=== PATIENT | female | born 1985 ===

== ENCOUNTER 2016-10-16 18:08 | Emergency (ER) | payer OTHER ==
--- NOTE | 2016-10-16 19:18 | OBHP ---
Datetime: 10/16/2016 18:11 IP Adm Impression: , intrauterine ; No Active Labor IP Admit Plan: Observation/Evaluation; Discharge home Admit Comment, IP Provider: 31yo with IUP at 35wks presents here today c/o some decreased movements today. She denies any VB or LOF. Pt reports that she is feeling good movements now. Tappen-irregular, FHR - Category 1, Cx- 0/0/-3 Assessment: IUP at 35.5wks NST Reactive Plan as per Private OB. D/c Home. F/U in the Office within 1 week. Pelvic Type - PN: Adequate Extremities - PN: Normal Abdomen - PN: Normal Back - PN: Normal Breast - PN: Normal Lungs - PN: Normal Heart - PN: Normal Thyroid - PN: Normal Neurologic - PN: Normal HEENT - PN: Normal General - PN: Normal FHR - Baseline A Provider: 130 Membranes, Provider: Intact Contraction Comments Provider: occasional Gestation - Est Wks by US: 35.5 IP Chief Complaint: Decreased movement NICHD Variability Prov Fetus A: Moderate 6-25bpm NICHD Accel Fetus A IP Provider: 15X15 FHR Category Provider Fetus A: Category I NICHD Decel Fetus A IP Provider: None Dilatation, Provider: 0 Effacement, Provider: 0 Station, Provider: -3 Genitourinary Exam: Normal DTRs - PN: Normal
[2016-10-16 23:28] VITALS: BP 113/74; PULSE 100; RESP 18; TEMP 97.1; O2SAT 96
== END 2016-10-16 19:22 | disposition home or self-care (01) ==
LOC: C.EROB 18:08
DX: O36.8130 Decreased fetal movements, third trimester, not applicable or unspecified (principal); Z3A.35 35 weeks gestation of pregnancy

== ENCOUNTER 2016-11-05 14:08 | Inpatient (IN) | payer OTHER ==
[2016-11-05 15:58] VITALS: BMI 28.5
[2016-11-05] MEDS: Lactated Ringer's 1,000 ML IV SCH (16:00)
[2016-11-05 16:46] LABS: BASO % 0.2 % (0.0-2.0); EOS # 0.5 K/uL (0.0-0.7); EOS % 4.2 % (0.0-4.0); LYMPH # 2.4 K/uL (1.0-4.3); LYMPH % 20.2 % (20.0-40.0); MEAN CELL VOLUME 83.4 fL (81.0-99.0); MEAN CORPUSCULAR HEMOGLOBIN 27.4 pg (27.0-31.0); MEAN CORPUSCULAR HGB CONC 32.9 g/dL (33.0-37.0); MEAN PLATELET VOLUME 11.6 fL (7.2-11.7); MONO # 0.8 K/uL (0.0-0.8); MONO % 7.2 % (0.0-10.0); RED CELL DISTRIBUTION WIDTH 21.5 % (11.5-14.5); WHITE BLOOD COUNT 11.8 K/uL (4.8-10.8)
[2016-11-05 16:51] LABS: CHLORIDE 99 mmol/L (98-107); POTASSIUM 4.4 mmol/L (3.6-5.2); SODIUM 134 mmol/L (132-148)
[2016-11-05 16:53] LABS: ALB/GLOB RATIO 1.2 (1.0-2.1); ALKALINE PHOSPHATASE 134 U/L (38-126); ALT/SGPT 39 U/L (9-52); AST/SGOT 26 U/L (14-36); BILIRUBIN,TOTAL 0.6 mg/dL (0.2-1.3); BLOOD UREA NITROGEN 5 mg/dL (7-17); CARBON DIOXIDE 21 mmol/L (22-30); GFR AFRICAN-AMERICAN > 60; TOTAL PROTEIN 6.6 g/dL (6.3-8.3)
[2016-11-05 16:54] LABS: CALCIUM 9.2 mg/dl (8.6-10.4); GLUCOSE,RANDOM 87 mg/dL (65-105); URIC ACID 3.3 mg/dL (2.2-7.5)
[2016-11-05 17:10] LABS: RBC URINE 1 /hpf (0-3); URINE BACTERIA MANY (<OCC); URINE BILIRUBIN NEGATIVE (NEGATIVE); URINE BLOOD NEGATIVE (NEGATIVE); URINE COLOR Yellow (YELLOW); URINE GLUCOSE (UA) NORMAL (Normal); URINE KETONE NEGATIVE (NEGATIVE); URINE LEUKOCYTE ESTERASE NEG Leu/uL (Negative); URINE PROTEIN NEGATIVE (NEGATIVE); URINE UROBILINOGEN NORMAL mg/dL (0.2-1.0); WBC URINE 3 /hpf (0-5)
--- NOTE | 2016-11-05 17:26 | OBHP ---
Datetime: 11/05/2016 16:06 IP Adm Impression: Term, intrauterine ; No Active Labor IP Admit Plan: Admit to unit; Initiate labor induction protocol (Annotations: Data stored by CPN on behalf of user) Admit Comment, IP Provider: 31 y.o. , LMP 02/09/16, KAYDEN 11/15/16, EGA 38w 4d - c/o increasing body itching. (+) AFM; denies LOF, VB, Ctx. case: Dr. Zuleyma Matthews, noted for 1) PUPPS versus cholestasis of . Elevated bile acids 11/02/16 confirming cholestasis of . 2) hyp othyroid - on levothyroxine; 3) anemia, on iron and folic acid. 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 x 3 years. 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 Fam Hx: Mother alive 54. Father alive 60; both, no med issues. No known fam h/o cancer P.E.: Short statured. WD in NAD. Awake, alert, oriented to time, person and place. Accompanied by - cervidil placed in posterior vaginal vault at 1630 hours Assessment: 31 y.o. P0, 38w 4d, cholestasis of for IOL; cervical ripening iniitiated. Al so, polyhydramnios - recent ultrasound 11/03/16, OSVALDO 25+ cm (per Dr. Matthews). Category 1 tracing. D/W patient cervical ripening; pain meds, upon request; continuation of labor - based on repsonse to cerv ical ripening, which includes but is not limited to spontaneous progession, pitocin, rupture of memb ranes. Patient and expressed an understanding and agrees; no questions offered. Patient is clinically stable. Plan: 1) Admit 2) NPO 3) IVFs 4) Continuous EFM 5) Admission labs 7) Observation 8) Anticipate vaginal delivery Pelvic Type - PN: Adequate Extremities - PN: Abnormal Abdomen - PN: Normal Back - PN: Normal Breast - PN: Not Done Lungs - PN: Normal Heart - PN: Normal Thyroid - PN: Normal Neurologic - PN: Normal HEENT - PN: Normal General - PN: Normal Weight - Estimated: 3632 Presentation-Admit: Vertex FHR - Baseline A Provider: 135 Membranes, Provider: Intact Contraction Comments Provider: sporadic Comments, ACOG Physical Exam: Abdomen: Gravid. Soft. Fundal height 40 cm Extremities: (+) occasional papules in various stages in lower extremities, greater below the kne es. All other systems reviewed - as per HPI Gestation - Est Wks by US: 38w 4d IP Hx Assessment: The History has been Reviewed and is Current EGA AdmitDate IP: 38.4 IP Indication for Induction: Other IP Chief Complaint: Other NICHD Variability Prov Fetus A: Moderate 6-25bpm NICHD Accel Fetus A IP Provider: 15X15 FHR Category Provider Fetus A: Category I NICHD Decel Fetus A IP Provider: None Dilatation, Provider: 0 Effacement, Provider: 0 Station, Provider: -3 Genitourinary Exam: Normal DTRs - PN: Normal
--- NOTE | 2016-11-05 17:29 | OBADHP ---
Datetime: 11/05/2016 16:06 Admit Comment, IP Provider: 31 y.o. , LMP 02/09/16, KAYDEN 11/15/16, EGA 38w 4d - c/o increasing body itching. (+) AFM; denies LOF, VB, Ctx. case: Dr. Zuleyma Matthews, noted for 1) PUPPS versus cholestasis of . Elevated bile acids 11/02/16 confirming cholestasis of . 2) hyp othyroid - on levothyroxine; 3) anemia, on iron and folic acid. 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 x 3 years. Homemaker. Fam Hx: Mother alive 54. Father alive 60; both, no med issues. No known fam h/o cancer P.E.: Short statured. WD in NAD. Awake, alert, oriented to time, person and place. Accompanied by - cervidil placed in posterior vaginal vault at 1630 hours Assessment: 31 y.o. P0, 38w 4d, cholestasis of for IOL; cervical ripening iniitiated. Al so, polyhydramnios - recent ultrasound 11/03/16, OSVALDO 25+ cm (per Dr. Matthews). Category 1 tracing. D/W patient cervical ripening; pain meds, upon request; continuation of labor - based on repsonse to cerv ical ripening, which includes but is not limited to spontaneous progession, pitocin, rupture of memb ranes. Patient and expressed an understanding and agrees; no questions offered. Patient is clinically stable. Plan: 1) Admit 2) NPO 3) IVFs 4) Continuous EFM 5) Admission labs 7) Observation 8) Anticipate vaginal delivery Pelvic Type - PN: Adequate Extremities - PN: Abnormal Abdomen - PN: Normal Back - PN: Normal Breast - PN: Not Done Lungs - PN: Normal Heart - PN: Normal Thyroid - PN: Normal Neurologic - PN: Normal HEENT - PN: Normal General - PN: Normal Weight - Estimated: 3632 Presentation-Admit: Vertex FHR - Baseline A Provider: 135 Membranes, Provider: Intact Contraction Comments Provider: sporadic Comments, ACOG Physical Exam: Abdomen: Gravid. Soft. Fundal height 40 cm Extremities: (+) occasional papules in various stages in lower extremities, greater below the kne es. All other systems reviewed - as per HPI Gestation - Est Wks by US: 38w 4d IP Hx Assessment: The History has been Reviewed and is Current Vital Signs Provider: Reviewed; Within Normal Limits IP Chief Complaint: Other NICHD Variability Prov Fetus A: Moderate 6-25bpm NICHD Accel Fetus A IP Provider: 15X15 FHR Category Provider Fetus A: Category I NICHD Decel Fetus A IP Provider: None Dilatation, Provider: 0 Effacement, Provider: 0 Station, Provider: -3 Genitourinary Exam: Normal DTRs - PN: Normal EGA AdmitDate IP: 38.4 IP Adm Impression: Term, intrauterine ; No Active Labor IP Admit Plan: Admit to unit; Initiate labor induction protocol
[2016-11-06] MEDS ORDERED: Propofol 10 mg/ml Inj (20 ML) ONE (06:17)
[2016-11-06] MEDS ORDERED: Oxytocin 30 UNIT 30 UNITS/500 ML BAG IV ONE (06:27)
[2016-11-06] MEDS ORDERED: Morphine 1 mg/ml preservative-free Inj(Duramorph) ONE (06:30)
[2016-11-06] MEDS ORDERED: Midazolam 2 MG/2 ML VIAL ONE (06:31)
[2016-11-06] MEDS ORDERED: cefOXitin IV 2 gm in Dextrose 2 GM/50 ML BAG IVPB ONE (06:34)
--- NOTE | 2016-11-06 07:55 | OBPN ---
Datetime: 11/06/2016 07:42 IP Progress Note Comment: Notified by R.N. at approximately 0605 hours, of low heart rate In LDR#1, patient received in left lateral, IVF bolus inprogress, oxygen mask in place. hear t rate 80 bpm. Patient positined on all fours. FHR apparently improved to 110-120 bpm. Pulse oximete r checked, this heart rate most likely maternal. Bedside sono performed: cephalic presentation confi rmed and FHR detected at 80s bpm. Decision made to proceed with delivery. Before this, sofy valencia MD was called. Consent obtained. Anesthesia and blemish remover were notifed. Patient transferred to O.R. on bed. See full operative report by Dr. Matthews Datetime: 11/05/2016 16:06 Membranes, Provider: Intact Contraction Comments Provider: sporadic FHR - Baseline A Provider: 135 Gestation - Est Wks by US: 38w 4d Weight - Estimated: 3632 Presentation-Admit: Vertex Vital Signs Provider: Reviewed; Within Normal Limits NICHD Accel Fetus A IP Provider: 15X15 FHR Category Provider Fetus A: Category I NICHD Variability Prov Fetus A: Moderate 6-25bpm Dilatation, Provider: 0 Effacement, Provider: 0 Station, Provider: -3 NICHD Decel Fetus A IP Provider: None
--- NOTE | 2016-11-06 07:55 | OBDS ---
DELIVERY PERSONNEL Delivery Doctor: Ralph Matthews MD Veterans Service Officer: Dori Ontiveros RN Anesthesiologist: Dr. Ordonez MATERNAL INFORMATION Delivery Anesthesia: General Medications in Delivery: pitocin 20 units Estimated Blood Loss (ml): 800 Placenta Cultured: No Maternal Complications: None RN Comments: Emergency CS to a live baby boy with 10/17 Provider Comments: Under [place], STAT primary LTCS performed with atraumatic delivery of live male infan t, weight 8lb 1oz, 's 9/9, cord pH pending. Patient tolerated procedure well; extubated and to R R in stable condition. to well baby nursery, also in stable condition LABOR SUMMARY EDC: 11/15/2016 00:00 No. Babies in Womb: 1 Attempted: No Labor Anesthesia: None LABOR INFORMATION Cervical Ripening Agents: Cervidil; Cytotec @ Oxytocin: N/A Group B Beta Strep: Negative Steroids Given: None Reason Steroids Not Administered: Not Applicable MEMBRANES Membranes Rupture Method: Artificial Rupture of Membranes: 11/06/2016 06:24 Length of Rupture (hrs): 0.00 Amniotic Fluid Color: Clear Amniotic Fluid Amount: Large Amniotic Fluid Odor: Normal STAGES OF LABOR Stage 3 hrs: 0 Stage 3 min: 1 CSECTION DELIVERY Primary Indication: Non reassuring heart rate Secondary Indication: Failed Induction CSection Urgency: Emergency CSection Incidence: Primary Labor: Labor Elective: Nonelective CSection Incision: Lower Uterine Transverse BABY A INFORMATION Infant Delivery Date/Time: 11/06/2016 06:24 Method of Delivery: Born in Route : No : N/A Forceps: N/A Vacuum Extraction: N/A Shoulder Dystocia : No SHOULDER DYSTOCIA BABY A Infant Delivery Date/Time: 11/06/2016 06:24 PRESENTATION/POSITION BABY A Presentation: Cephalic Cephalic Presentation: Vertex Vertex Position: Left Occipital Anterior Breech Presentation: N/A PLACENTA INFORMATION BABY A Placenta Delivery Time : 11/06/2016 06:25 Placenta Method of Delivery: Manual Removal Placenta Status: Delivered SCORES BABY A Heart Rate 1 min: >100 bpm Resp Effort 1 min: Good Cry Reflex Irritability 1 min: Cough or Sneeze or Pulls Away Muscle Tone 1 min: Active Motion Color 1 min: Body [place], Extremities Blue SCORE 1 MIN: 9 Heart Rate 5 min: >100 bpm Resp Effort 5 min: Good Cry Reflex Irritability 5 min: Cough or Sneeze or Pulls Away Muscle Tone 5 min: Active Motion Color 5 min: Body [place], Extremities Blue SCORE 5 MIN: 9 INFORMATION BABY A Gestational Age at Delivery: 38.5 Gestational Status: Term Outcome : Liveborn Infant Condition : Stable Sex: Male IDENTIFICATION/MEDS BABY A ID Band Number: [id number] ID Band Location: Left Leg; Left Arm Sensor Applied: Yes Sensor Number: [id number] Sensor Location : Cord Clamp WEIGHT/LENGTH BABY A Infant Birthweight (gms): 3645 Infant Weight (lb): 8 Infant Weight (oz): 1 Infant Length Inches: 20.00 Length cms: 50.8 CORD INFORMATION BABY A No. Cord Vessels: 3 Nuchal Cord : N/A Cord Blood Taken: Yes Infant Suction: None ASSESSMENT BABY A Complications: None Physical Findings at Delivery: Within Normal Limits Infant Respirations: Appears Normal Wire Rope Sling Maker/ALS Called : No Infant Care By: Dr. Whatley Transferred To: Nursery
--- NOTE | 2016-11-06 07:59 | OBDS ---
DELIVERY PERSONNEL Delivery Doctor: Ralph Matthews MD Wood And Hardware Outfitter: Dori Ontiveros RN Anesthesiologist: Dr. Ordonez MATERNAL INFORMATION Delivery Anesthesia: General Medications in Delivery: pitocin 20 units Estimated Blood Loss (ml): 800 Placenta Cultured: No Maternal Complications: None RN Comments: Emergency CS to a live baby boy with 10/17 Provider Comments: Under [place], STAT primary LTCS performed with atraumatic delivery of live male infan t, weight 8lb 1oz, 's 9/9, cord pH pending. Patient tolerated procedure well; extubated and to R R in stable condition. to well baby nursery, also in stable condition agree with above LABOR SUMMARY EDC: 11/15/2016 00:00 No. Babies in Womb: 1 Attempted: No Labor Anesthesia: None LABOR INFORMATION Cervical Ripening Agents: Cervidil; Cytotec @ Cervical Ripening Agents: Cervidil (Annotations: cervidil removed) Cervical Ripening Agents: Cervidil Oxytocin: N/A Group B Beta Strep: Negative Group B Beta Strep: Negative Steroids Given: None Reason Steroids Not Administered: Not Applicable MEMBRANES Membranes Rupture Method: Artificial Rupture of Membranes: 11/06/2016 06:24 Length of Rupture (hrs): 0.00 Amniotic Fluid Color: Clear Amniotic Fluid Amount: Large Amniotic Fluid Odor: Normal STAGES OF LABOR Stage 3 hrs: 0 Stage 3 min: 1 CSECTION DELIVERY Primary Indication: Non reassuring heart rate Secondary Indication: Failed Induction CSection Urgency: Emergency CSection Incidence: Primary Labor: Labor Elective: Nonelective CSection Incision: Lower Uterine Transverse BABY A INFORMATION Infant Delivery Date/Time: 11/06/2016 06:24 Method of Delivery: Born in Route : No : N/A Forceps: N/A Vacuum Extraction: N/A Shoulder Dystocia : No SHOULDER DYSTOCIA BABY A Delivery Date/Time: 11/06/2016 06:24 PRESENTATION/POSITION BABY A Presentation: Cephalic Cephalic Presentation: Vertex Vertex Position: Left Occipital Anterior Breech Presentation: N/A PLACENTA INFORMATION BABY A Placenta Delivery Time : 11/06/2016 06:25 Placenta Method of Delivery: Manual Removal Placenta Status: Delivered SCORES BABY A Heart Rate 1 min: >100 bpm Resp Effort 1 min: Good Cry Reflex Irritability 1 min: Cough or Sneeze or Pulls Away Muscle Tone 1 min: Active Motion Color 1 min: Body [place], Extremities Blue SCORE 1 MIN: 9 Heart Rate 5 min: >100 bpm Resp Effort 5 min: Good Cry Reflex Irritability 5 min: Cough or Sneeze or Pulls Away Muscle Tone 5 min: Active Motion Color 5 min: Body [place], Extremities Blue SCORE 5 MIN: 9 INFORMATION BABY A Gestational Age at Delivery: 38.5 Gestational Status: Term Infant Outcome : Liveborn Infant Condition : Stable Infant Sex: Male IDENTIFICATION/MEDS BABY A ID Band Number: [id number] ID Band Location: Left Leg; Left Arm Sensor Applied: Yes Sensor Number: [id number] Sensor Location : Cord Clamp WEIGHT/LENGTH BABY A Birthweight (gms): 3645 Weight (lb): 8 Weight (oz): 1 Length Inches: 20.00 Length cms: 50.8 CORD INFORMATION BABY A No. Cord Vessels: 3 Nuchal Cord : N/A Cord Blood Taken: Yes Infant Suction: None ASSESSMENT BABY A Infant Complications: None Physical Findings at Delivery: Within Normal Limits Respirations: Appears Normal Strike Off Machine Operator/ALS Called : No Infant Care By: Dr. Whatley Transferred To: Nursery
--- NOTE | 2016-11-06 08:25 | PCM.SURG1 ---
Surgeon's Initial Post Op Note - Surgeon's Notes Surgeon: Zuleyma Matthews MD Cap Coverer: Judy Kerr MD Type of Anesthesia: General Endo Pre-Operative Diagnosis: Term Intrauerine , bradycardia, intrahepatic cholestasis of pregancy Operative Findings: live male infnat, agpars 9,9 weight of 8lbs1 ounces. ebl 800 ml, normal uteurs , tubes and ovaries bilaterally. pediatrical present for entire delivery. Dr Esparza was present for entire case and [facility] I arried witin minutes of starting and baby was delivered with hog tender at [facility]. Dr Atkinson was essential in gaining, etreym, retraction, exposure, holidng bldader blader , dleiveyr infnat, clsoing all laweyrs, obtainign hemostasis. Post-Operative Diagnosis: same as above Operation Performed: Primary Low Transerse Cesearean section Specimen/Specimens Removed: placenta Estimated Blood Loss: EBL {In ML}: 800 Blood Products Given: N/A Drains Used: No Drains Date of Surgery/Procedure: 11/06/16 Time of Surgery/Procedure: 06:00
[2016-11-06] MEDS ORDERED: oxyCODONE 30 mg Immediate Release Tab PO PRN (10:34)
--- NOTE | 2016-11-06 11:00 | OP ---
SURGEON: Zuleyma Matthews MD RAISIN SEPARATOR OPERATOR: Theresa Esparza MD TYPE OF ANESTHESIA: General endotracheal. PREOPERATIVE DIAGNOSES: Term intrauterine , bradycardia, intrahepatic cholestasis of . OPERATIVE FINDINGS: Live female , is 9 and 9, weight of 8 pounds 1 ounce. FINDINGS: Normal uterus, tubes and ovaries bilaterally. Director Sanitation Bureau present for entire delivery. Dr. Esparza was present for the entire case and started the section due to emergent need during which I arrived in minutes of the section starting and baby was delivered with public safety telecommunicator at bedside. Dr. Esparza was essential in gaining entry, retraction, exposure, holding the bladder blade, delivering the , closing all layers, obtaining hemostasis and was present for the entire case. POSTOPERATIVE DIAGNOSES: Term intrauterine , bradycardia, intrahepatic cholestasis of . OPERATION PERFORMED: Primary low transverse section. SPECIMEN REMOVED: Placenta. ESTIMATED BLOOD LOSS: 800 mL. BLOOD PRODUCTS: None. COMPLICATIONS: None. DESCRIPTION OF PROCEDURE: The patient was taken to the operating room after she was noted to have a prolonged deceleration which was not improved with resuscitation, manipulation of left lateral decubitus position, oxygen, etc. A bedside ultrasound was then done as per Dr. Esparza in which bradycardia was confirmed and the patient was immediately transferred to the OR in which general anesthesia was administered at 06:22, baby was delivered by 06:24 in a stat fashion. A Pfannenstiel skin incision was made with a scalpel and carried in line to the underlying layer of the fascia. The fascia was incised in the midline and the incision was extended laterally bluntly. The rectus muscle was bluntly in the midline. The lower end of the [place] was then bluntly inserted after peritoneal entrance was obtained. Uterine incision was then made, incision extended laterally bluntly. The surgeon's hand entered the uterine cavity and the infant's head was delivered atraumatically followed by delivery of the shoulders followed by delivery of the body. Both oral and nasal passages of the baby were bulb suctioned. The umbilical cord was clamped and cut and the baby was handed off to the awaiting public safety telecommunicator. I had arrived at that moment in which and I scrubbed in. Cord blood and cord gases were collected and sent x2. The placenta was then delivered manually. The uterus was exteriorized and cleared off all clots and debris. The uterine incision was repaired with 0 Vicryl in running continuous locked fashion, second layer of the same suture was used to close the uterus in a running imbricating manner. There were normal tubes and ovaries bilaterally. The uterus was then returned to the abdomen. The paracolic gutters were cleared of all clots and debris, and there was good hemostasis at the uterine incision site. The peritoneum was reapproximated and closed with 2-0 chromic in a continuous fashion. The rectus was reapproximated and closed with 2-0 chromic in interrupted manner. The fascia was reapproximated and closed with 0 Vicryl in a running continuous fashion. Subcutaneous tissue was closed with 2-0 plain in interrupted manner and the skin was reapproximated and closed with 3-0 Monocryl in a running subcuticular fashion on a Michael needle. At the end of the procedure, all needle, sponge and instrument counts were noted and correct x2. The patient tolerated the procedure well and was transferred to the recovery room in stable condition. Zuleyma Matthews MD
[2016-11-06] MEDS: Lactated Ringer's 1,000 ML IV SCH (14:54)
[2016-11-06] MEDS: cefOXitin IV 1 gm in Dextrose 1 GM/50 ML BAG IVPB SCH ×2 (14:56→20:31)
[2016-11-06] MEDS: Simethicone 80 mg Chewtab PO PRN (21:36)
[2016-11-07] MEDS: cefOXitin IV 1 gm in Dextrose 1 GM/50 ML BAG IVPB SCH (04:37)
[2016-11-07] MEDS: Oxycodone/Acetaminophen 5/325 mg Tab PO PRN ×3 (06:12→23:07)
--- NOTE | 2016-11-07 07:17 | OBPPN ---
Datetime: 11/07/2016 07:14 PP Pain Prov: Within normal limits PP Nausea Prov: Denies PP Flatus Prov: No PP BM Prov: No PP Breasts Prov: Normal PP Heart Prov: Normal PP Lungs Prov: Normal PP Abdomen/Uterus Prov: Normal PP Lochia Prov: Normal PP Vulva/Perineum Prov: Normal PP CVA Tenderness Prov: Normal PP Extremities Prov: Normal PP C/S Incision Prov: Normal PP Progress Prov: Normal PP Impression Prov: Normal progression PP Plan Prov: Continue present management PP Progress Note Prov: Pt seen and examined and reports pain is well controlled. Pt isambuating, vo iding and passig flatus, noBM. Pt denies any fevers, chills, nause, vomiting, dizzyness, lighthtean ds, cp, sob. Pt is breast feeding, tolerating diet VSS PE: GEN :nAD, AAOx 3 RESP: CTAB/l CVS RRR, +S1/S2 BREAST: Non tender, non engorged b/l ABD: soft, NT/ND, +BS, no guarding no reboudn tendneress, no rigidty Incsion C/D/I FUndu: Firm, below level of umbius, minimal lochia, non fouls melling EXT: no calf tenerness, negative santiago's sign A/P s/p PLTCS POD #1 doing well -d/c marshall -adviance diet -iv heplock once toleratting regular diet -am labs -bowel regimen -encouarge amubatin, breast feeding ,incentive psriomter Vital Signs Provider PP: Reviewed; Within Normal Limits
[2016-11-07] MEDS: Simethicone 80 mg Chewtab PO PRN ×2 (11:00→15:38)
[2016-11-08] MEDS: Oxycodone/Acetaminophen 5/325 mg Tab PO PRN ×2 (08:25→14:22)
[2016-11-08] MEDS: Simethicone 80 mg Chewtab PO PRN ×3 (09:32→17:14)
--- NOTE | 2016-11-08 14:20 | OBPPN ---
Datetime: 11/08/2016 14:08 PP Pain Prov: Within normal limits PP Nausea Prov: Denies PP Flatus Prov: No PP BM Prov: No PP Breasts Prov: Not Done PP Heart Prov: Normal PP Lungs Prov: Normal PP Abdomen/Uterus Prov: Normal PP Lochia Prov: Normal PP Vulva/Perineum Prov: Not Done PP CVA Tenderness Prov: Normal PP Extremities Prov: Normal PP C/S Incision Prov: Normal PP Progress Prov: Normal PP Comments Phys Exam Prov: Abdomen: (+) BS. Softly distended. Fundus firm, mobile, minimal and appr opriately tender. Incision with subcuticular closure - clean, dry and intact. All other systems reviewed and are negative PP Impression Prov: Normal progression PP Plan Prov: Continue present management PP Progress Note Prov: Patient received in room 459, sitting in chair. . Reports incis ional pain 3/10 without pain meds; and much improved when she takes pain med. Denies nausea, vomiting ; flatus or BM. Ambulating and voiding without difficulty. Reports itching to extremities still pres ent. P.E.: as above. Awake, alert, oriented to time, person and place. Pleasant and cooperative - post operative H/H pending Assessment: POD#2, 31 y.o. P1, S/P STAT primary LTCS for bradycardia; failed IOL for choles tasis of . Afebrile, vital signs stable. Returning function. Slowly returning GI - patie nt encouraged to ambulate more and decrease p.o. intake of narcotics. Hypothyroid on levethyroxine. Clinically stable. Plan: 1) Contniue present management 2) Anticipate discharge home 11/09 -as per Dr. Matthews Vital Signs Provider PP: Reviewed; Within Normal Limits
[2016-11-08 16:52] LABS: BASO # 0.1 K/uL (0.0-0.2); BASO % 0.5 % (0.0-2.0); EOS # 0.6 K/uL (0.0-0.7); EOS % 4.6 % (0.0-4.0); HEMATOCRIT 33.7 % (34.0-47.0); LYMPH # 2.6 K/uL (1.0-4.3); LYMPH % 20.7 % (20.0-40.0); MEAN CELL VOLUME 84.6 fL (81.0-99.0); MEAN CORPUSCULAR HEMOGLOBIN 27.7 pg (27.0-31.0); MEAN CORPUSCULAR HGB CONC 32.7 g/dL (33.0-37.0); MEAN PLATELET VOLUME 11.2 fL (7.2-11.7); MONO # 0.9 K/uL (0.0-0.8); MONO % 7.6 % (0.0-10.0); NRBC % 0.1 % (0.0-2.0); RED CELL DISTRIBUTION WIDTH 20.7 % (11.5-14.5); WHITE BLOOD COUNT 12.6 K/uL (4.8-10.8)
[2016-11-08] MEDS: Levothyroxine 50 MCG TAB PO SCH (17:11)
[2016-11-08 19:56] VITALS: RESP 20
[2016-11-09] MEDS: Levothyroxine 50 MCG TAB PO SCH (06:11)
[2016-11-09] MEDS: Oxycodone/Acetaminophen 5/325 mg Tab PO PRN (06:20)
--- NOTE | 2016-11-09 07:37 | OBDCSUM ---
Datetime: 11/09/2016 07:36 Discharged to, Provider: Home Follow up at, Provider: Dr Matthews Disch Instr Activity: Normal activity Disch Instr Diet: Regular Discharge Instructions, Provider: Routine instructions given Discharge Diagnosis, Provider: Term Delivered Discharge Time: 11/09/2016 07:36 Follow up in weeks, Provider: 1 weeks Disch Referrals: None Contraception discussed, Prov: Yes Disch Activity Restrictions: No sexual activity; Nothing in vagina - [place], tampons, douche Discharge Comment, Provider: Precautins given Contraception after Delivery: Not Planning to Use
--- NOTE | 2016-11-09 07:38 | OBPPN ---
Datetime: 11/09/2016 07:36 PP Pain Prov: Within normal limits PP Nausea Prov: Denies PP Flatus Prov: Yes PP BM Prov: No PP Breasts Prov: Normal PP Heart Prov: Normal PP Lungs Prov: Normal PP Abdomen/Uterus Prov: Normal PP Lochia Prov: Normal PP Vulva/Perineum Prov: Normal PP CVA Tenderness Prov: Normal PP Extremities Prov: Normal PP C/S Incision Prov: Normal PP Progress Prov: Normal PP Impression Prov: Normal progression PP Plan Prov: Continue present management; Discharge PP Progress Note Prov: pt seen and examined adn reports pian controlled with meidcatin. pt is ambuat ing, voiding, passing flatus, bresat feeding . VSS PE: GEN: NAd, AA ox 3 BREAST :NON tender, non engorged b/l RESP: Ctab/l CVS: RRR, +S1/S2 ABD: soft, NT/ND, no guadig no reboudn tendneree no righits, +BS Incsion C/d/i healing well Fundus; Firm, below level of umbilics VE: minimal lochia, non fouls smelling EXT; negative santiago's sgin, ngetiave calf tendnersws A/P s/p PLTCS POD #3 doing well d/c home rto 1 weeks precuation given Vital Signs Provider PP: Reviewed; Within Normal Limits
[2016-11-09 20:52] VITALS: BP 107/70; PULSE 92; TEMP 98; O2SAT 98
== END 2016-11-09 15:55 | disposition home or self-care (01) | DRG 765 ==
LOC: C.EROB 14:08 → C.4D 15:14 → C.4M 11-06 10:30
PROVIDERS: ADMIT Obstetrics & Gynecology; ATTEND Obstetrics & Gynecology
PROC: 3E0P7VZ Introduction of Hormone into Female Reproductive, Via Natural or Artificial Opening (ICD-10-PCS; 2016-11-05)
PROC: 10D00Z1 Extraction of Products of Conception, Low, Open Approach (ICD-10-PCS; principal; 2016-11-06)
DX: O26.62 Liver and biliary tract disorders in childbirth (principal); O61.9 Failed induction of labor, unspecified; O76 Abnormality in fetal heart rate and rhythm complicating labor and delivery; K83.1 Obstruction of bile duct; O40.3XX0 Polyhydramnios, third trimester, not applicable or unspecified; E03.9 Hypothyroidism, unspecified; O99.284 Endocrine, nutritional and metabolic diseases complicating childbirth; O99.02 Anemia complicating childbirth; D64.9 Anemia, unspecified; Z37.0 Single live birth; Z3A.38 38 weeks gestation of pregnancy